=== PATIENT | female | born 1955 | race Caucasian/White ===

== ENCOUNTER → 2023-07-21 09:11 | Outpatient (REF) | payer MEDICARE, BC, SELFPAY | LOC: WDC 09:11 | PROVIDERS: ATTENDING PHYSICIAN Internal Medicine | DX: Z12.31 Encounter for screening mammogram for malignant neoplasm of breast (principal) | CPT/HCPCS: 77063; 77067 ==

== ENCOUNTER → 2023-09-30 12:49 | Outpatient (REF) | payer MEDICARE, BC, SELFPAY | LOC: RAD 12:49 | PROVIDERS: ATTENDING PHYSICIAN Nurse Practitioner Family; FAMILY PHYSICIAN Internal Medicine | DX: E78.2 Mixed hyperlipidemia (principal) | CPT/HCPCS: 75571 ==

== ENCOUNTER → 2023-12-22 10:09 | Outpatient (REF) | payer MEDICARE, BC, SELFPAY | LOC: RAD 10:09 | PROVIDERS: ATTENDING PHYSICIAN Internal Medicine Rheumatology | DX: R53.1 Weakness (principal) | CPT/HCPCS: 73110; 73130; 73564 ==

== ENCOUNTER → 2024-01-07 16:22 | Outpatient (REF) | payer MEDICARE, BC, SELFPAY | LOC: RAD 16:22 | PROVIDERS: ATTENDING PHYSICIAN Internal Medicine; FAMILY PHYSICIAN Internal Medicine | DX: R19.7 Diarrhea, unspecified (principal) | CPT/HCPCS: 74018 ==

== ENCOUNTER 2024-05-09 06:23 | Day surgery (SDC) | payer MEDICARE, BC, SELFPAY | END 2024-05-09 13:46 | disposition home or self-care (01) | LOC: GI 06:23 | PROVIDERS: ATTENDING PHYSICIAN Internal Medicine Gastroenterology; FAMILY PHYSICIAN Internal Medicine | DX: K52.832 Lymphocytic colitis (principal); K64.8 Other hemorrhoids; R19.4 Change in bowel habit; Q43.8 Other specified congenital malformations of intestine | CPT/HCPCS: 45380; 88305 ==

== ENCOUNTER → 2025-02-19 14:01 | Outpatient (REF) | payer MEDICARE, BC, SELFPAY | LOC: WDC 14:01 | PROVIDERS: ATTENDING PHYSICIAN Nurse Practitioner Adult Health; FAMILY PHYSICIAN Internal Medicine | DX: Z12.31 Encounter for screening mammogram for malignant neoplasm of breast (principal) | CPT/HCPCS: 77063; 77067 ==

== ENCOUNTER → 2025-03-01 09:10 | Outpatient (REF) | payer MEDICARE, BC, SELFPAY | LOC: WDC 09:10 | PROVIDERS: ATTENDING PHYSICIAN Nurse Practitioner Adult Health; FAMILY PHYSICIAN Internal Medicine | DX: R92.8 Other abnormal and inconclusive findings on diagnostic imaging of breast (principal) | CPT/HCPCS: 76642 ==